=== PATIENT | male | born 1985 | race Caucasian/White ===

== ENCOUNTER 2020-12-15 21:04 | Inpatient (IN) | payer OTHER, SELFPAY ==
[~2020-12-15 21:04] MED LIST: Iopamidol-370 76% 500 ML 1 ML ONE
[2020-12-15] MEDS ORDERED: Boostrix 0.5 ML (Tdap) VIAL ONE (21:15)
[2020-12-15 21:18] LABS: Actual Bicarbonate (HCO3a) 17.2 mEq/L (22-28); Analyzer IN Cardio ER; Base Excess (BEa) -10.3 mEq/L (-2.0 to +3.0); CO2 Tension 43.9 mmHg (35.0-45.0); Calcium, Ionized (arterial) 1.18 mmol/L (1.12-1.30); Carboxyhemoglobin (COHb) 0.7 gm% (0.0-3.0); Hemoglobin (Hb) 16.9 g/dL (14.0-18.0); Potassium - ABG Lab 2.98 mmol/L (3.70-5.30)
[2020-12-15 21:20] LABS: Puncture Site LRA; pH, Arterial 7.21 (7.35-7.45)
[2020-12-15 21:25] LABS: ALV-art Gradient 551.125 mmHg (0-20)
[2020-12-15 21:30] LABS: ALT (SGPT) 157 U/L (8-55); AST (SGOT) 132 U/L (5-34); Albumin 4.6 g/dL (3.5-5.0); Alcohol 270 mg/dL (Less than 10); Alkaline Phosphatase 67 U/L (40-110); Anion Gap 17 mmol/L (10-20); BUN (Urea Nitrogen) 11 mg/dL (8.9-20.6); Bilirubin, Total 0.5 mg/dL (0.2-1.2); Calc. Creatinine Clearance 0 mL/min (70-130); Calcium 8.8 mg/dL (7.8-10.44); Carbon Dioxide 19 mmol/L (22-29); Chloride 103 mmol/L (98-107); Globulin 3.2 g/dL (2.4-3.5); Glucose 129 mg/dL (70-105); Potassium 3.2 mmol/L (3.5-5.1); Protein, Total 7.8 g/dL (6.0-8.3); Sodium 136 mmol/L (136-145)
[2020-12-15 21:46] LABS: Band 4 % (5-11); Hemoglobin 16.3 g/dL (14.0-18.0); Lymphocytes 61 % (21-51); MDiff Complete? YES; Mean Corpuscular HGB CONC 35.6 g/dL (32.0-36.0); Mean Corpuscular Hemoglobin 33.1 pg (27.0-31.0); Mean Corpuscular Volume 92.9 fL (78.0-98.0); Mean Platelet Volume 8.3 fL (7.4-10.4); Monocytes 2 % (0-10); Neutrophil 32 % (42-75); Platelet Clumps MODERATE; Platelet Morphology Comment PLT clumps seen-ADEQ; RBC Distribution Width 11.6 % (11.5-14.5); Red Blood Cell (RBC) Count 4.94 mill/uL (4.70-6.10); White Blood Cell (WBC) Count 8.6 thou/uL (4.8-10.8)
[2020-12-15] MEDS ORDERED: Albuterol Sulfate 2.5 mg/3 ml Neb ONE (22:06)
[2020-12-15] MEDS ORDERED: Propofol 1,000 MG/100 ML VIAL IV ONE (22:15)
[2020-12-15 22:17] LABS: INR-International Normal Ratio 1.2; Prothrombin Time 14.7 sec (12.0-14.7)
[2020-12-15 22:18] LABS: PTT 27.1 sec (22.9-36.1)
[2020-12-15] MEDS ORDERED: Fentanyl CADD 100 ML IV SCH (22:30)
[2020-12-15 23:12] LABS: Bilirubin Negative (Negative); Blood, Urine 3+ (Negative); Clarity Clear (Clear); Glucose, Urine (Dipstick) Normal (Negative); Ketone, Urine Negative (Negative); Leukocyte Negative Leu/uL (Negative); Nitrite Negative (Negative); Protein, Urine (Dipstick) 30 mg/dL (Neg-Trace); RBC/HPF 21-50 HPF (0-3); Squamous Epithelial 0-3 HPF (0-3); Urobilinogen Normal mg/dL (Less than 2); pH, Urine 5.5 (5.0-9.0)
[2020-12-15 23:14] LABS: Bacteria/HPF Rare-Few HPF (None Seen); Specific Gravity, Urine 1.045 (1.002-1.036)
[2020-12-15 23:20] LABS: Amphetamine Not Detected (NotDetected); Barbiturates Screen Not Detected (NotDetected); Benzodiazepine Screen Not Detected (NotDetected); Cocaine Metabolite Screen Not Detected (NotDetected); Methadone Not Detected (NotDetected); Methamphetamine Not Detected (NotDetected); Opiate Screen Not Detected (NotDetected); Oxycodone Screen Not Detected (NotDetected); Phencyclidine (PCP) Not Detected (NotDetected); THC/Cannabinoid Screen Not Detected (NotDetected); Tricyclic Screen Not Detected (NotDetected)
[2020-12-15] MEDS ORDERED: Ondansetron ODT 4 MG TAB PO PRN (23:41)
[2020-12-15] MEDS ORDERED: Dextrose 50% Abboject 50 ML SYRINGE SLOW IVP PRN (23:41)
[2020-12-15] MEDS ORDERED: hydrALAZINE 20 MG/ML VIAL SLOW IVP PRN (23:41)
[2020-12-15] MEDS ORDERED: Dextrose 5% in Water 1,000 ML IV PRN (23:41)
[2020-12-15] MEDS ORDERED: Ventilator Sedation Protocol 1 EACH FS SCH (23:41)
[2020-12-15] MEDS ORDERED: Ondansetron PF 4 MG/2 ML Vial IVP PRN (23:41)
[2020-12-16] MEDS ORDERED: Fentanyl BOLUS 250 ML IVPB PRN (00:15)
[2020-12-16] MEDS ORDERED: Morphine 2 MG/ML VIAL SLOW IVP PRN (00:15)
[2020-12-16] MEDS ORDERED: Lorazepam 2 MG/ML VIAL SLOW IVP PRN (00:15)
[2020-12-16] MEDS ORDERED: DISCONTINUE PREVIOUS NARCOTIC PAIN MEDICATIONS AND BENZODIAZEPINES FS SCH (00:15)
[2020-12-16] MEDS ORDERED: Propofol 1,000 MG/100 ML VIAL IV PRN (00:15)
[2020-12-16] MEDS ORDERED: Propofol BOLUS 1,000 MG/100 ML VIAL IV PRN (00:15)
[2020-12-16] MEDS ORDERED: Fentanyl CADD 100 ML IV SCH (00:15)
[2020-12-16] MEDS: Sodium Chloride 0.9% 1,000 ML IV SCH ×3 (00:16→16:30)
[2020-12-16 00:25] LABS: Hemoglobin 14.3 g/dL (14.0-18.0)
[2020-12-16] MEDS ORDERED: Sodium Chloride 0.9% 500 ML IV SCH (00:30)
[2020-12-16 00:40] LABS: SARS-CoV-2 NAA Rapid Test Not Detected (NotDetected)
[2020-12-16 00:44] LABS: Lactic Acid 2.7 mmol/L (0.5-2.2)
[2020-12-16 04:07] LABS: #Lymphocytes 1.4 thou/uL (1.20-3.40); #Monocytes 0.9 thou/uL (0.11-0.59); #Neutrophils 7.6 thou/uL (1.40-6.50); %Basophils 0.1 % (0.0-1.0); %Eosinophils 0.1 % (0.0-10.0); %Lymphocytes 13.7 % (21.0-51.0); %Monocytes 9.4 % (0.0-10.0); %Neutrophils 76.7 % (42.0-75.0); Hemoglobin 14.2 g/dL (14.0-18.0); Mean Corpuscular Hemoglobin 32.5 pg (27.0-31.0); Mean Corpuscular Volume 92.8 fL (78.0-98.0); Mean Platelet Volume 8.2 fL (7.4-10.4); Platelet Count 213 thou/uL (130-400); RBC Distribution Width 11.5 % (11.5-14.5); Red Blood Cell (RBC) Count 4.37 mill/uL (4.70-6.10)
[2020-12-16 04:30] LABS: Anion Gap 16 mmol/L (10-20); BUN (Urea Nitrogen) 12 mg/dL (8.9-20.6); Calc. Creatinine Clearance 188 mL/min (70-130); Calcium 8.1 mg/dL (7.8-10.44); Carbon Dioxide 15 mmol/L (22-29); Chloride 107 mmol/L (98-107); Glucose 99 mg/dL (70-105); Magnesium 1.8 mg/dL (1.6-2.6); Phosphorus 2.9 mg/dL (2.3-4.7); Sodium 134 mmol/L (136-145)
[2020-12-16 05:23] VITALS: BMI 37.5
[2020-12-16 07:22] LABS: Actual Bicarbonate (HCO3a) 18.6 mEq/L (22-28); Base Excess (BEa) -5.9 mEq/L (-2.0 to +3.0); CO2 Tension 34.1 mmHg (35.0-45.0); Calcium, Ionized (arterial) 1.13 mmol/L (1.12-1.30); Carboxyhemoglobin (COHb) 0.7 gm% (0.0-3.0); O2 Tension (PaO2), arterial 81.5 mmHg (80.0-100.0); Potassium - ABG Lab 3.83 mmol/L (3.70-5.30); pH, Arterial 7.36 (7.35-7.45)
[2020-12-16] MEDS ORDERED: Fentanyl CADD 100 ML ONE (07:25)
[2020-12-16 07:26] LABS: Puncture Site RRA
[2020-12-16 07:27] LABS: ALV-art Gradient 196.725 mmHg (0-20)
[2020-12-16] MEDS ORDERED: Magnesium Sulfate 4 GM in Sodium Chloride 0.9% 250 ML 250 ML IVPB SCH (08:00)
[2020-12-16] MEDS: Famotidine/PF 20 mg/2ml Vial SLOW IVP SCH ×2 (08:49→20:18)
[2020-12-16] MEDS ORDERED: Cyclobenzaprine 10 MG TAB PO PRN (11:41)
[2020-12-16] MEDS ORDERED: Acetaminophen/Codeine 30-300mg Tablet PO PRN (11:42)
[2020-12-16] MEDS: Acetaminophen 325 MG TAB PO SCH ×2 (12:26→19:37)
[2020-12-16] MEDS: Oxazepam 10 MG CAP PO SCH ×2 (12:31→19:37)
[2020-12-16] MEDS: Ibuprofen 600 MG TAB PO SCH ×2 (14:34→22:47)
[2020-12-16] MEDS: traMADol HCl 50 MG TAB PO SCH ×2 (14:37→20:17)
[2020-12-17] MEDS: Acetaminophen 325 MG TAB PO SCH ×3 (00:19→15:53)
[2020-12-17] MEDS: traMADol HCl 50 MG TAB PO SCH ×3 (03:58→15:53)
[2020-12-17] MEDS: Oxazepam 10 MG CAP PO SCH ×2 (03:58→15:52)
[2020-12-17] MEDS: Ibuprofen 600 MG TAB PO SCH ×2 (05:14→15:53)
[2020-12-17 06:07] LABS: #Eosinphils 0.1 thou/uL (0.0-0.7); #Lymphocytes 0.8 thou/uL (1.20-3.40); #Monocytes 0.4 thou/uL (0.11-0.59); #Neutrophils 4.6 thou/uL (1.40-6.50); %Basophils 0.2 % (0.0-1.0); %Eosinophils 0.9 % (0.0-10.0); %Lymphocytes 12.8 % (21.0-51.0); %Monocytes 6.7 % (0.0-10.0); %Neutrophils 79.4 % (42.0-75.0); Hemoglobin 14.1 g/dL (14.0-18.0); Mean Corpuscular HGB CONC 34.6 g/dL (32.0-36.0); Mean Corpuscular Hemoglobin 32.4 pg (27.0-31.0); Mean Corpuscular Volume 93.6 fL (78.0-98.0); Mean Platelet Volume 7.9 fL (7.4-10.4); Platelet Count 157 thou/uL (130-400); RBC Distribution Width 11.5 % (11.5-14.5); Red Blood Cell (RBC) Count 4.34 mill/uL (4.70-6.10); White Blood Cell (WBC) Count 5.9 thou/uL (4.8-10.8)
[2020-12-17 06:36] LABS: Anion Gap 10 mmol/L (10-20); BUN (Urea Nitrogen) 10 mg/dL (8.9-20.6); Calc. Creatinine Clearance 235 mL/min (70-130); Calcium 8.5 mg/dL (7.8-10.44); Carbon Dioxide 25 mmol/L (22-29); Chloride 106 mmol/L (98-107); Glucose 93 mg/dL (70-105); Magnesium 2.3 mg/dL (1.6-2.6); Phosphorus 1.5 mg/dL (2.3-4.7); Potassium 3.9 mmol/L (3.5-5.1); Sodium 137 mmol/L (136-145)
[2020-12-17] MEDS ORDERED: Thiamine 100 MG TAB PO SCH (09:00)
[2020-12-17] MEDS ORDERED: Folic Acid 1 MG TAB PO SCH (09:00)
[2020-12-17] MEDS: Famotidine/PF 20 mg/2ml Vial SLOW IVP SCH (10:18)
[2020-12-17 12:06] VITALS: BP 133/86; TEMP 98.5
[2020-12-17] MEDS ORDERED: Aspirin 81 mg Enteric Coated Tablet PO SCH (21:00)
== END 2020-12-17 13:10 | disposition home or self-care (01) | DRG 963 ==
LOC: ERS 21:04 → CCU 22:04 → SURG A 12-16 17:30
PROVIDERS: ADMIT Surgery; ATTEND Surgery
PROC: 5A1935Z Respiratory Ventilation, Less than 24 Consecutive Hours (ICD-10-PCS; principal; 2020-12-15)
DX: S32.491A Other specified fracture of right acetabulum, initial encounter for closed fracture (principal); J96.90 Respiratory failure, unspecified, unspecified whether with hypoxia or hypercapnia; S36.029A Unspecified contusion of spleen, initial encounter; R40.2311 Coma scale, best motor response, none, in the field [EMT or ambulance]; R40.2111 Coma scale, eyes open, never, in the field [EMT or ambulance]; R40.2211 Coma scale, best verbal response, none, in the field [EMT or ambulance]; S27.322A Contusion of lung, bilateral, initial encounter; Z20.822 Contact with and (suspected) exposure to COVID-19; S01.01XA Laceration without foreign body of scalp, initial encounter; E66.9 Obesity, unspecified; F10.129 Alcohol abuse with intoxication, unspecified; Y90.8 Blood alcohol level of 240 mg/100 ml or more; V89.2XXA Person injured in unspecified motor-vehicle accident, traffic, initial encounter; Z88.0 Allergy status to penicillin; Z68.37 Body mass index [BMI] 37.0-37.9, adult; Z78.1 Physical restraint status
CPT/HCPCS: 0240U; 36415; 36416; 36600; 70450; 70498; 71045; 71260; 72125; 72170; 74177; 80048; 80053; 80306; 80307; 81003; 81015; 82805; 83605; 83735; 84100; 85025; 85610; 85730; 86850; 86900; 86901; 90715; 94002; 94003; 94640; G0390; J0690; J2060; J2704; J3010; J3475; J7050; J7611; J7620; Q9967; S0028